=== PATIENT | male | born 1990 | race African-American/Black ===

== ENCOUNTER → 2020-09-21 | Outpatient (CLI) | payer OTHER ==
--- NOTE | 2020-09-21 12:55 | RAD ---
2 View CXR. Clinical indications: Positive TB skin test. Findings: No acute lung infiltrate or pleural effusion or pulmonary edema or lung mass or cavitary no dule or pneumothorax is seen. The heart size, pulmonary vasculature, mediastinum and both jg are u nremarkable. The osseous structures appear intact. Impression: No acute radiographic abnormality is seen. Specifically, there are no radiographic findin gs indicative of active tuberculous lung disease. Electronically signed by: Slaeem Marcelino MD (09/21/2020 12:52 PM) [id number]
== END ==
LOC: RAD 12:21
PROVIDERS: ATTEND Family Medicine
DX: R76.11 Nonspecific reaction to tuberculin skin test without active tuberculosis (principal)
CPT/HCPCS: 71046